=== PATIENT | female | born 1935 | race Caucasian/White ===

== ENCOUNTER 2017-12-28 14:10 | Day surgery (SDC) | END 2017-12-28 18:36 | disposition home or self-care (01) ==

== ENCOUNTER 2018-01-31 09:52 | Day surgery (SDC) | END 2018-01-31 14:45 | disposition home or self-care (01) ==

== ENCOUNTER 2018-03-19 07:35 | Day surgery (SDC) | END 2018-03-19 11:56 | disposition home or self-care (01) ==

== ENCOUNTER 2018-04-09 07:14 | Day surgery (SDC) | END 2018-04-09 10:54 | disposition home or self-care (01) ==